=== PATIENT | female | born 1990 | race Caucasian/White ===

== ENCOUNTER 2018-06-21 08:57 | Day surgery (SDC) | payer OTHER ==
[2018-06-21 09:56] LABS: CULTURE INDICATED? YES; MICROSCOPIC INDICATED
[2018-06-21 10:16] LABS: INTERNATIONAL NORMALIZED RATIO 1.05 (0.93-1.1); PROTHROMBIN TIME 10.9 Seconds (9.6-11.5)
[2018-06-21 10:43] LABS: MEAN CORPUSCULAR HEMOGLOBIN 16.4 pg (27.0-34.8); MEAN CORPUSCULAR VOLUME 56.1 fL (80-100); MEAN PLATELET VOLUME 7.2 fL (7.4-10.4); PLATELET COUNT 522 x10^3/uL (130-400); RED BLOOD COUNT 4.31 x10^6/uL (3.82-5.3)
[2018-06-21] MEDS ORDERED: MISOPROSTOL 200 MCG TABLET ONE (10:43)
[2018-06-21] MEDS ORDERED: METHYLERGONOVINE 0.2 MG/ML IM ONE (10:44)
[2018-06-21] MEDS ORDERED: OXYTOCIN 10 UNITS/ML, 1ML ONE (10:44)
[2018-06-21 10:45] LABS: ANISOCYTOSIS 2+; BASOPHILS # (AUTO) 0.05 x10^3/uL (0-0.1); BASOPHILS % (AUTO) 1 % (0-1); EOSINOPHILS # (AUTO) 0.16 x10^3/uL (0-0.4); EOSINOPHILS % (AUTO) 2 % (1-7); LYMPHOCYTES # (AUTO) 1.72 x10^3/uL (1-3.4); LYMPHOCYTES % (AUTO) 23 % (22-44); MD MORPH REVIEW ONLY; MEAN CORPUSCULAR HGB CONC 29.2 g/dL (32.4-35.8); MONOCYTES # (AUTO) 0.58 x10^3/uL (0.2-0.8); MONOCYTES % (AUTO) 8 % (2-9); NEUTROPHILS # (AUTO) 4.98 x10^3/uL (1.8-6.8); NEUTROPHILS % (AUTO) 67 % (42-75)
[2018-06-21 10:46] LABS: HYPOCHROMIA 1+
[2018-06-21 10:47] LABS: <PLATELET ESTIMATE> INCREASED; <PLT MORPHOLOGY> NORMAL PLT MORPH; OVALOCYTES 1+
[2018-06-21 10:48] LABS: MICROCYTOSIS 2+
[2018-06-21] MEDS ORDERED: MIDAZOLAM 1 MG/ML, 2ML ONE (11:03)
[2018-06-21] MEDS ORDERED: FENTANYL PF 100 MCG/2ML ONE (11:04)
[2018-06-21] MEDS ORDERED: ONDANSETRON 2MG/ML, 2ML ONE (12:05)
[2018-06-21] MEDS ORDERED: DEXAMETHASONE 4 MG/ML, 1ML ONE (12:05)
[2018-06-21] MEDS ORDERED: PROPOFOL 10 MG/ML, 20ML ONE (12:05)
[2018-06-21] MEDS ORDERED: SUCCINYLCHOLINE 20 MG/ML, 10ML ONE (12:05)
[2018-06-21] MEDS ORDERED: OXYcodone 5 MG/5 ML ORAL.SOL UDC PO PRN (12:30)
[2018-06-21] MEDS ORDERED: KETOROLAC 30 MG/1 ML IV PRN (12:30)
[2018-06-21] MEDS ORDERED: HYDROmorphone 1 MG/ML, 1ML IV PRN (12:30)
[2018-06-21] MEDS ORDERED: LABETALOL 5MG/ML, 20ML IV PRN (12:30)
[2018-06-21] MEDS ORDERED: FENTANYL PF 100 MCG/2ML IV PRN (12:30)
[2018-06-21] MEDS ORDERED: METOCLOPRAMIDE 5 MG/ML, 2ML IV PRN (12:30)
[2018-06-21] MEDS ORDERED: MEPERIDINE/PF 25MG/0.5ML IVPush PRN (12:30)
[2018-06-21] MEDS ORDERED: ONDANSETRON 2MG/ML, 2ML IVPush PRN (12:30)
[2018-06-21] MEDS ORDERED: ALBUTEROL SULFATE 2.5 MG/3 ML NPPB PRN (12:30)
[2018-06-21] MEDS ORDERED: PROMETHAZINE 25 MG/ML, 1ML IV PRN (12:30)
[2018-06-21] MEDS ORDERED: hydrALAzine 20 MG/ML, 1ML IV PRN (12:30)
[2018-06-21] MEDS ORDERED: OXYcodone 5 MG/5 ML ORAL.SOL UDC ONE (12:44)
[2018-06-21] MEDS ORDERED: PLEASE ENTER ALLERGIES MC SCH (13:00)
[2018-06-21] MEDS ORDERED: PLEASE ENTER HEIGHT AND WEIGHT MC SCH (13:30)
== END 2018-06-21 15:45 | disposition home or self-care (01) ==
LOC: OR 08:57 → 4NOR 09:21 → OR 15:45
PROVIDERS: ATTEND Obstetrics & Gynecology
DX: O02.0 Blighted ovum and nonhydatidiform mole (principal); D64.9 Anemia, unspecified; F32.9 Major depressive disorder, single episode, unspecified; E03.9 Hypothyroidism, unspecified
CPT/HCPCS: 36415; 59812; 81001; 85025; 85610; 85730; 87077; 87086; 87186; 88305; J0330; J1100; J2250; J2405; J2704; J3010; J2210; J2590